=== PATIENT | male | born 1970 | race African-American/Black ===

== ENCOUNTER 2019-06-11 23:45 | Inpatient (IN) | payer OTHER ==
[~2019-06-11] VITALS: Ht 182.9 cm; Wt 129.7 kg
[2019-06-12] MEDS ORDERED: SODIUM CHLORIDE 0.9% 1,000 ML IV ONE (02:18)
[2019-06-12 03:06] LABS: CHLORIDE 111 mEq/L (98-107)
[2019-06-12 03:12] LABS: BASOPHILS % 0.9 % (0.0-2.0); EOSINOPHILS % 1.4 % (0.0-5.0); ETHANOL BLOOD < 10 mg/dL; HEMATOCRIT. 47.2 % (42.0-52.0); HEMOGLOBIN. 15.9 g/dL (14.0-18.0); MEAN CORPUSCULAR VOLUME 89.2 fL (80.0-94.0); MEAN PLATELET VOLUME 11.1 fl (7.4-10.4); MONOCYTES % 9.9 % (2.0-8.0); NEUTROPHILS % 67.8 % (40.0-76.0); PLATELET 143 x1000/uL (130-400); RED CELL DISTRIBUTION WIDTH 14.6 % (11.6-14.6)
[2019-06-12 03:17] LABS: CLARITY URINE CLEAR (CLEAR); COLOR URINE DARK YELLOW (YELLOW); KETONES URINE TRACE (NEGATIVE); LEUKOCYTE ESTERASE URINE TRACE (NEGATIVE); NITRITE URINE NEGATIVE (NEGATIVE); OCCULT BLOOD URINE NEGATIVE (NEGATIVE); PROTEIN URINE 1+ (NEGATIVE); SPECIFIC GRAVITY URINE 1.036 (1.005-1.030)
[2019-06-12 03:25] LABS: *AMPHETAMINES SCREEN URINE NEGATIVE (NEGATIVE); *BARBITURATES SCREEN URINE NEGATIVE (NEGATIVE)
[2019-06-12 03:26] LABS: *BENZODIAZEPINES SCREEN URINE NEGATIVE (NEGATIVE); *COCAINE SCREEN URINE NEGATIVE (NEGATIVE); CANNABINOID URINE SCREEN PRESUMTIVE POSITIVE (NEGATIVE); METHADONE URINE SCREEN NEGATIVE (NEGATIVE); OPIATES URINE SCREEN NEGATIVE (NEGATIVE); PHENCYCLIDINE URINE SCREEN PRESUMTIVE POSITIVE (NEGATIVE)
[2019-06-12] MEDS ORDERED: IOHEXOL-300 100 ML BOTTLE ONE (07:00)
[2019-06-12] MEDS: SODIUM CHLORIDE 0.9% 1,000 ML IV SCH ×2 (09:08→18:36)
[2019-06-12] MEDS ORDERED: KETOROLAC 15MG/ML VIAL IV PRN (09:15)
[2019-06-12] MEDS ORDERED: ONDANSETRON HCL 4MG/2ML INJ IV PRN (09:15)
[2019-06-12] MEDS ORDERED: NITROGLYCERIN 0.4MG TABLET SL SL PRN (09:15)
[2019-06-12] MEDS ORDERED: DOCUSATE SODIUM 100MG CAPSULE PO PRN (09:15)
[2019-06-12] MEDS ORDERED: LORAZEPAM 0.5MG TABLET PO PRN (09:15)
[2019-06-12] MEDS ORDERED: GUAIFENESIN 200MG/10ML SUGAR FREE UDC PO PRN (09:15)
[2019-06-12] MEDS ORDERED: IPRATROPIUM/ALBUTEROL 0.5-3(2.5)MG/3ML NEB NEB PRN (09:15)
[2019-06-12] MEDS ORDERED: ACETAMINOPHEN 325MG TABLET PO PRN (09:15)
[2019-06-12] MEDS ORDERED: MAGNESIUM/ALUMINUM HYDROXIDE/SIMETHICONE 30ML UDC PO PRN (09:15)
[2019-06-12] MEDS ORDERED: ENOXAPARIN 40MG/0.4ML SYR SUBCUT SCH (09:15)
[2019-06-12] MEDS: ENOXAPARIN 30MG/0.3ML SYR SUBCUT SCH ×2 (12:07→20:34)
[2019-06-12] MEDS: ASPIRIN 325MG EC TABLET PO SCH (12:07)
[2019-06-12] MEDS ORDERED: LORAZEPAM 2MG/ML CPJ IM ONE (13:15)
[2019-06-12] MEDS ORDERED: HALOPERIDOL LACTATE 5MG/ML VIAL IM ONE (13:15)
[2019-06-12 16:50] VITALS: BP 176/90
[2019-06-12 17:45] VITALS: BP 150/91
[2019-06-12 18:00] LABS: CREATINE KINASE MB FRACTION 4.4 ng/mL (0.5-3.6)
[2019-06-12 20:00] VITALS: BP 173/86
[2019-06-12] MEDS: FAMOTIDINE 20MG TABLET PO SCH (20:33)
[2019-06-12] MEDS: CLONIDINE 0.1MG TABLET PO PRN (20:33)
[2019-06-12] MEDS ORDERED: ZOLPIDEM TARTRATE 5MG TABLET PO PRN (21:00)
[2019-06-12 23:59] LABS: CREATINE KINASE MB FRACTION 4.5 ng/mL (0.5-3.6)
[2019-06-13 00:38] VITALS: BP 167/87
[2019-06-13 04:00] VITALS: BP 143/93
[2019-06-13] MEDS: SODIUM CHLORIDE 0.9% 1,000 ML IV SCH ×2 (04:00→16:58)
[2019-06-13 08:00] VITALS: BP 180/107
[2019-06-13] MEDS: ASPIRIN 325MG EC TABLET PO SCH (08:34)
[2019-06-13] MEDS: FAMOTIDINE 20MG TABLET PO SCH ×2 (08:35→20:05)
[2019-06-13] MEDS: ENOXAPARIN 30MG/0.3ML SYR SUBCUT SCH ×2 (08:35→20:06)
[2019-06-13 12:00] VITALS: BP 157/90
[2019-06-13 16:00] VITALS: BP 196/113
[2019-06-13 20:00] VITALS: BP 182/103
[2019-06-13] MEDS: CLONIDINE 0.1MG TABLET PO PRN (20:05)
[2019-06-14] MEDS: CLONIDINE 0.1MG TABLET PO PRN (02:01)
[2019-06-14 04:00] VITALS: BP 137/77
[2019-06-14] MEDS: SODIUM CHLORIDE 0.9% 1,000 ML IV SCH (07:10)
[2019-06-14 08:00] VITALS: BP 155/97
[2019-06-14] MEDS: FAMOTIDINE 20MG TABLET PO SCH (09:01)
[2019-06-14] MEDS: ASPIRIN 325MG EC TABLET PO SCH (09:01)
== END 2019-06-14 11:45 | disposition home or self-care (01) | DRG 52 ==
LOC: ER 23:45 → 5WST 06-12 05:22 → EDBEDREQ 06-12 05:25 → EDBEDREQTM 06-12 05:25 → ENRESERV 06-12 15:37 → 5WST 06-12 16:31
PROVIDERS: ADMIT Internal Medicine; ATTEND Internal Medicine
DX: G92 Toxic encephalopathy (principal); E66.9 Obesity, unspecified; F16.10 Hallucinogen abuse, uncomplicated; F12.10 Cannabis abuse, uncomplicated; F17.200 Nicotine dependence, unspecified, uncomplicated; V89.2XXA Person injured in unspecified motor-vehicle accident, traffic, initial encounter; Y93.89 Activity, other specified; Y92.89 Other specified places as the place of occurrence of the external cause; Y99.8 Other external cause status; Z68.38 Body mass index [BMI] 38.0-38.9, adult
CPT/HCPCS: 36415; 71045; 74177; 80053; 80305; 80320; 81003; 82550; 82553; 82962; 83036; 84484; 85025; 93005; 93970; 97161; 99291; J1630; J1650; J1885; J7030; Q9967; G0480